=== PATIENT | male | born 1950 | race Asian ===

== ENCOUNTER 2018-01-30 08:24 | Day surgery (SDC) | END 2018-01-30 15:13 | disposition home or self-care (01) ==

== ENCOUNTER 2018-02-13 06:00 | Day surgery (SDC) | END 2018-02-13 10:30 | disposition home or self-care (01) ==

== ENCOUNTER 2018-03-26 12:17 | Day surgery (SDC) | END 2018-03-26 17:40 | disposition home or self-care (01) ==

== ENCOUNTER 2018-11-20 13:53 | Emergency (ER) | payer MEDICARE, OTHER ==
[~2018-11-20] VITALS: Ht 160 cm; Wt 87.8 kg
[~2018-11-20 13:53] MED LIST: ALLO300T2 PO; AMLO-147 PO; ATEN50TA PO; GABA-526 PO; HYDR-4011 PO; METH500T8 PO; NALO4SPR NS; NAPR-985 PO; OMEG1CAP2 PO
[2018-11-20 14:13] VITALS: BP 120/59; PULSE 52; RESP 20; Ht 160 cm; Wt 87.8 kg
[2018-11-20] MEDS ORDERED: HYDROCODONE/APAP (5/325) TAB PO ONE (16:30)
[2018-11-20] MEDS ORDERED: NAPROXEN 500 MG TAB PO ONE (16:30)
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
== END 2018-11-20 18:07 | disposition home or self-care (01) ==
LOC: FTE 13:53
DX: M54.41 Lumbago with sciatica, right side (principal); I10 Essential (primary) hypertension; M62.838 Other muscle spasm
CPT/HCPCS: 72100